=== PATIENT | female | born 1985 ===

== ENCOUNTER 2020-08-23 05:16 | Inpatient (IN) | payer OTHER ==
[2020-08-23] MEDS ORDERED: Misoprostol 200 MCG Tab PO PRN (05:38)
[2020-08-23] MEDS ORDERED: Methylergonovine 0.2 MG/1 ML Amp IM PRN (05:38)
[2020-08-23] MEDS ORDERED: Sodium Chloride 0.9% 10 ML SDV IV PRN (05:38)
[2020-08-23] MEDS ORDERED: Sodium Chloride 0.9% 2.5 ML Syringe FLUSH PRN (05:38)
[2020-08-23] MEDS ORDERED: Water For Irrigation,Sterile 1,000 ML Container IRR PRN (05:38)
[2020-08-23] MEDS ORDERED: Ampicillin 2 GM in Sodium Chloride 0.9% 100 ML IV ONE (05:38)
[2020-08-23] MEDS ORDERED: Butorphanol 1 MG/ML SDV IVPUSH PRN (05:38)
[2020-08-23] MEDS ORDERED: Lidocaine 1% 50 ML MDV INJECT PRN (05:38)
[2020-08-23] MEDS ORDERED: Nalbuphine 10 MG/1 ML Vial IVPUSH PRN (05:38)
[2020-08-23] MEDS ORDERED: Sodium Chloride 0.9% 10 ML Syringe FLUSH PRN (05:38)
[2020-08-23] MEDS ORDERED: Tranexamic Acid 1,000 MG in Sodium Chloride 0.9% 100 ML IV PRN (05:38)
[2020-08-23] MEDS ORDERED: Carboprost Tromethamine 250 MCG/1 ML Amp IM PRN (05:38)
[2020-08-23] MEDS ORDERED: Terbutaline 1 MG/ML SDV SUBCUT PRN (05:43)
[2020-08-23] MEDS ORDERED: Oxytocin/0.9 % Sodium Chloride 30 UNIT/500 ML BAG IV SCH ×2 (05:45)
[2020-08-23] MEDS ORDERED: Ondansetron 4 MG/2 ML SDV IVPUSH PRN (05:45)
[2020-08-23] MEDS ORDERED: Lactated Ringers 1,000 ML IV SCH (05:45)
[2020-08-23 07:09] LABS: BLOOD UREA NITROGEN,BUN 11 mg/dL (7.0-18.0); CARBON DIOXIDE,CO2 20.1 mmol/L (21.0-32.0); CHLORIDE,CL 104 mmol/L (98-107); GLUCOSE RANDOM 113 mg/dL (74-106); POTASSIUM,K 3.9 mmol/L (3.5-5.1); SODIUM,NA 137 mmol/L (136-145)
[2020-08-23] MEDS ORDERED: Ampicillin 1 GM in Sodium Chloride 0.9% 50 ML IV SCH ×2 (10:30→10:45)
[2020-08-23] MEDS ORDERED: Ibuprofen 400 MG Tab PO PRN (14:14)
[2020-08-23] MEDS ORDERED: Benzocaine/Menthol 20%-0.5% Spray 78 GM Cannister TOP PRN (14:14)
[2020-08-23] MEDS ORDERED: Acetaminophen 500 MG Tab PO PRN ×2 (14:14)
[2020-08-23] MEDS ORDERED: Bisacodyl 10 MG Supp RECTAL PRN (14:14)
[2020-08-23] MEDS ORDERED: Lanolin 100% Cream 7 GM Tube TOP PRN (14:14)
[2020-08-23] MEDS ORDERED: Ibuprofen 800 MG Tab PO PRN (14:14)
[2020-08-23] MEDS ORDERED: oxyCODONE 5 MG Tab PO PRN (14:14)
[2020-08-23] MEDS ORDERED: Witch Hazel Medicated Pads 40/Jar TOP PRN (14:14)
[2020-08-23] MEDS ORDERED: Docusate Sodium 100 MG Cap PO PRN (14:14)
--- NOTE | 2020-08-23 14:21 | PCM.OPNOTE ---
- General Post-Op/Procedure Note Date of Surgery/Procedure: 08/23/20 Operative Procedure(s): /IP--precipitous Findings: Viable male APGARs 8,9 weight 2790 gm. Spontaneous delivery intact placenta with 3 V cord. Pre Op Diagnosis: 37/1 week IUP. Gestational hypertension Post-Op Diagnosis: Same Primary Surgeon: Lucila Irby EBL in mLs: 250 Complications: none known Condition: Stable Free Text/Narrative:: Dictation [id number]
--- NOTE | 2020-08-23 15:47 | OR ---
SURGEON: Lucila Irby M.D. DATE OF PROCEDURE: 08/23/2020 PREOPERATIVE DIAGNOSIS: A 37 and 1 week intrauterine , presents for induction of labor for gestational hypertension. POSTOPERATIVE DIAGNOSIS: A 37 and 1 week intrauterine , presents for induction of labor for gestational hypertension. PROCEDURE: Spontaneous vaginal delivery with intact perineum. ANESTHESIA: None. ESTIMATED BLOOD LOSS: 250 mL. COMPLICATIONS: None known. FINDINGS: Viable male, scores of 8 at one minute and 9 at five minutes, weight of 2720 g. Spontaneous delivery, intact placenta, 3-vessel cord. DISPOSITION: Infant to nursery, mom in LDRP. PROCEDURE DETAILS: Missy is a 35-year-old female who presents at 37 and 1 week gestational age for scheduled induction of labor due to gestational hypertension. She has been followed since 34 weeks with mild-range gestational hypertension with blood pressures mainly in the 140s over 90s. She did receive steroids for lung maturity a couple of weeks ago. Group B strep was positive. The patient was admitted. Routine labs were drawn as well as PIH labs, which are reassuring and stable. Blood pressures are ranging 130s to 150s over 80s to 100s. The patient is denying headaches, visual changes, or midepigastric pain. The patient preferred just to have an amniotomy performed. She was already found to be 4 cm, 80% effaced, and -2 station. Therefore, she underwent dosing for her group B strep prophylaxis. She received 2 doses, and within the next hour, underwent amniotomy. A large amount of clear fluid was returned. The patient began to progress, and shortly before 2 p.m., she was found to be complete. I was called for delivery. Upon my arrival, the patient delivered precipitously. was on her chest with the attending nursery staff at her side. Cord was still intact. The cord was clamped x2 and cut. Cord arterial, cord venous, and cord blood sampling obtained. Light pressure was applied while the placenta was delivered spontaneously intact. Vigorous fundal uterine massage was then applied while 30 units of Pitocin was delivered in 500 mL IV fluid. Upon inspection of the cervix, vaginal sidewall, and perineum, these were found to be intact. The patient tolerated this procedure well overall. Hemostasis appeared evident. Sponge and instrument counts correct. The patient remained in LDRP. We will monitor blood pressures closely. to nursery. ELINA / JAY /[id number]
[2020-08-24] MEDS ORDERED: Citalopram 20 MG Tab PO SCH (09:00)
--- NOTE | 2020-08-24 11:55 | PCM.PNPP ---
- General Info Date of Service: 08/24/20 Functional Status: Reports: Pain Controlled, Tolerating Diet, Ambulating, Urinating - Review of Systems General: Reports: Fatigue. Denies: Fever, Weakness Pulmonary: Denies: Shortness of Breath Cardiovascular: Denies: Chest Pain, Palpitations, Lightheadedness Gastrointestinal: Denies: Abdominal Pain, Nausea, Vomiting Genitourinary: Denies: Flank Pain Musculoskeletal: Reports: No Symptoms Skin: Reports: No Symptoms Neurological: Reports: No Symptoms Psychiatric: Reports: No Symptoms - General Info Date of Service: 08/24/20 - Patient Data Vital Signs - Most Recent: Last Vital Signs Temp 35.9 C L 08/24/20 09:17 Pulse 84 08/24/20 09:17 Resp 16 08/24/20 09:17 BP 119/75 08/24/20 09:17 Pulse Ox 98 08/24/20 09:17 Weight - Most Recent: 88.224 kg Lab Results - Last 24 Hours: Laboratory Results - last 24 hr 08/23/20 08/24/20 Range/Units 15:31 05:17 Hgb 12.3 (12.0-16.0) g/dL Hct 38.3 (36.0-46.0) % Screen NEGATIVE (NEGATIVE) RhIG Candidate? YES Rhogam Indicated YES, BABY RH POS H Med Orders - Current: Current Medications Acetaminophen (Tylenol Extra Strength) 500 mg PO Q4H PRN PRN Reason: Pain Acetaminophen (Tylenol Extra Strength) 1,000 mg PO Q4H PRN PRN Reason: Pain Benzocaine/Menthol (Dermoplast Pain Relief 20%-0.5% [place]) 78 gm TOP ASDIRECTED PRN PRN Reason: Perineal Comfort Measure Last Admin: 08/23/20 15:57 Dose: 1 canister Documented by: Bisacodyl (Dulcolax) 10 mg RECTAL ONETIME PRN PRN Reason: Constipation Butorphanol Tartrate (Stadol) 1 mg IVPUSH Q1H PRN PRN Reason: Pain Carboprost Tromethamine (Hemabate Ds) 250 mcg IM ASDIRECTED PRN PRN Reason: Post Hemorrhage Citalopram Hydrobromide (Celexa) 20 mg PO DAILY SHAR Last Admin: 08/24/20 11:50 Dose: 20 mg Documented by: Docusate Sodium (Colace) 100 mg PO BID PRN PRN Reason: Constipation Emollient Ointment (Lansinoh Hpa) 0 gm TOP ASDIRECTED PRN PRN Reason: Sore Nipples Last Admin: 08/23/20 15:56 Dose: 7 g Documented by: Oxytocin/Sodium Chloride (Oxytocin 30 Unit/500 Ml-Ns) 30 unit in 500 mls @ 999 mls/hr IV TITRATE SHAR Last Infusion: 08/23/20 14:08 Dose: 500 mls/hr Documented by: Tranexamic Acid 1,000 mg/ (Sodium Chloride) 110 mls @ 660 mls/hr IV ONETIME PRN PRN Reason: Bleeding Lactated Ringer's (Ringers, Lactated) 1,000 mls @ 150 mls/hr IV ASDIRECTED SHAR Last Admin: 08/23/20 06:20 Dose: 150 mls/hr Documented by: Oxytocin/Sodium Chloride (Oxytocin 30 Unit/500 Ml-Ns) 30 unit in 500 mls @ 2 mls/hr IV TITRATE [facility]; Protocol Ibuprofen (Motrin) 400 mg PO Q4H PRN PRN Reason: Pain Ibuprofen (Motrin) 800 mg PO Q6H PRN PRN Reason: Pain Last Admin: 08/24/20 00:21 Dose: 800 mg Documented by: Methylergonovine Maleate (Methergine) 0.2 mg IM ASDIRECTED PRN PRN Reason: Post Hemorrhage Nalbuphine HCl (Nubain) 10 mg IVPUSH Q1H PRN PRN Reason: Pain (severe 7-10) Ondansetron HCl (Zofran) 4 mg IVPUSH Q4H PRN PRN Reason: Nausea Oxycodone HCl (Oxycodone) 5 mg PO Q2H PRN PRN Reason: Pain Sodium Chloride (Saline Flush) 10 ml FLUSH ASDIRECTED PRN PRN Reason: Keep Vein Open Sodium Chloride (Saline Flush) 2.5 ml FLUSH ASDIRECTED PRN PRN Reason: Keep Vein Open Sodium Chloride (Normal Saline) 10 ml IV ASDIRECTED PRN PRN Reason: IV Use Sterile Water (Sterile Water For Irrigation) 1,000 ml IRR ASDIRECTED PRN PRN Reason: delivery Witch Cathryn (Tucks) 1 pad TOP ASDIRECTED PRN PRN Reason: comfort care Last Admin: 08/23/20 15:56 Dose: 1 tub Documented by: Discontinued Medications Ampicillin Sodium 2 gm/ Sodium (Chloride) 100 mls @ 200 mls/hr IV ONETIME ONE Stop: 08/23/20 06:07 Last Admin: 08/23/20 06:26 Dose: 200 mls/hr Documented by: Ampicillin Sodium 1 gm/ Sodium (Chloride) 50 mls @ 100 mls/hr IV Q4H SHAR Ampicillin Sodium 1 gm/ Sodium (Chloride) 50 mls @ 100 mls/hr IV Q4H SHAR Last Admin: 08/23/20 10:48 Dose: 100 mls/hr Documented by: Lidocaine HCl (Xylocaine 1%) 50 ml INJECT ONETIME PRN PRN Reason: Laceration repair Misoprostol (Cytotec) 200 mcg PO ONETIME PRN PRN Reason: Post Hemorrhage Terbutaline Sulfate (Brethine) 0.25 mg SUBCUT ASDIRECTED PRN PRN Reason: Tacysystole - Interaction Support Person: Significant Other - Recovery Exam Fundal Tone: Firm Fundal Level: 1 Fingerbreadths Below Umbilicus Fundal Placement: Midline Lochia Amount: Moderate Lochia Color: Rubra/Red Perineum Description: Intact, Minimal Bruising/Swelling Bladder Status: Voiding Urinary Elimination: Voided - Exam General: Alert, Oriented Lungs: Normal Respiratory Effort Cardiovascular: Regular Rate, Regular Rhythm GI/Abdominal Exam: Normal Bowel Sounds, Soft Extremities: Pedal Edema (trace). No: Valdo's Sign Skin: Warm, Dry, Intact Neurological: No New Focal Deficit Psy/Mental Status: Alert, Normal Affect, Normal Mood - Problem List & Annotations (1) Vaginal delivery SNOMED Code(s): 633390499 Code(s): O80 - ENCOUNTER FOR FULL-TERM UNCOMPLICATED DELIVERY Status: Acute Current Visit: Yes (2) Gestational hypertension SNOMED Code(s): 115427259 Code(s): O13.9 - GESTATIONAL HTN W/O SIGNIFICANT PROTEINURIA, UNSP TRIMESTER Status: Acute Current Visit: Yes - Problem List Review Problem List Initiated/Reviewed/Updated: Yes - My Orders Last 24 Hours: My Active Orders 08/23/20 14:14 Notify Provider Vital Signs [RC] ASDIRECTED Acetaminophen [Tylenol Extra Strength] 1,000 mg PO Q4H PRN Acetaminophen [Tylenol Extra Strength] 500 mg PO Q4H PRN Benzocaine/Menthol [Dermoplast Pain Relief 20%-0.5% [place]] 78 gm TOP ASDIRECTED PRN Docusate Sodium [Colace] 100 mg PO BID PRN Ibuprofen [Motrin] 400 mg PO Q4H PRN Ibuprofen [Motrin] 800 mg PO Q6H PRN Lanolin [Lansinoh HPA] See Dose Instructions TOP ASDIRECTED PRN bisacodyL [Dulcolax] 10 mg RECTAL ONETIME PRN oxyCODONE 5 mg PO Q2H PRN witch Cathryn [Tucks] 1 pad TOP ASDIRECTED PRN 08/23/20 14:15 Patient Status [ADT] Routine May Shower [RC] ASDIRECTED Up ad Eleni [RC] ASDIRECTED Vital Signs [RC] PER UNIT ROUTINE Assess Lochia [WOMSER] Per Unit Routine Assess Uterine Involution [WOMSER] Per Unit Routine Ice Therapy [OM.PC] Per Unit Routine Perineal Care [OM.PC] Per Unit Routine Peripheral IV Discontinue [OM.PC] Routine Sitz Bath [OM.PC] Per Unit Routine 08/23/20 14:16 Cooling Warming Measures [RC] ASDIRECTED 08/23/20 15:31 SCREEN [BBK] Urgent RH IMMUNE GLOBULIN [BBK] Urgent RHOGAM, [RHIG WORKUP, ] [BBK] Urgent 08/24/20 09:00 Citalopram [Celexa] 20 mg PO DAILY 08/24/20 11:52 Ready for Discharge [RC] PER UNIT ROUTINE - Assessment Assessment:: PPD 1 status post Gestational HTN--BPs normalizing - Plan Plan:: Patient is doing well overall. BPs improving nicely> Denies headaches or visual changes. is going well. She would prefer to go home today if baby is able to. She will continue to monitor BPs at home and call with any concerns. She agrees to take citalopram this period given history of PP depression. Discharge to home. [facility] up at [facility] 4 weeks and we will call her in interval. Discharge instructions reviewed.
[2020-08-24 18:17] VITALS: BP 138/98; PULSE 97
== END 2020-08-24 17:20 | disposition home or self-care (01) | DRG 807 ==
LOC: MW.OBCHECK 05:16 → MW.OB 05:17 → MW.OBCHECK 05:39 → OBSVTOIN 13:48 → MW.OB 19:41
PROVIDERS: ADMIT Obstetrics & Gynecology; ATTEND Obstetrics & Gynecology
PROC: 10E0XZZ Delivery of Products of Conception, External Approach (ICD-10-PCS; principal; 2020-08-23)
PROC: 10907ZC Drainage of Amniotic Fluid, Therapeutic from Products of Conception, Via Natural or Artificial Opening (ICD-10-PCS; 2020-08-23)
PROC: 3E0234Z Introduction of Serum, Toxoid and Vaccine into Muscle, Percutaneous Approach (ICD-10-PCS; 2020-08-24)
DX: O13.4 Gestational [pregnancy-induced] hypertension without significant proteinuria, complicating childbirth (principal); Z37.0 Single live birth; Z3A.37 37 weeks gestation of pregnancy; O62.3 Precipitate labor; Z20.828 Contact with and (suspected) exposure to other viral communicable diseases; O26.893 Other specified pregnancy related conditions, third trimester; Z67.41 Type O blood, Rh negative
CPT/HCPCS: 36415; 36430; 59025; 59409; 80053; 82570; 84156; 85014; 85018; 85027; 85460; 86592; 86850; 86870; 86900; 86901; A9270-GY; J0290; J2590; J2792; J7050; J7120

== ENCOUNTER 2021-08-08 08:57 | Emergency (ER) | payer OTHER ==
[2021-08-08] MEDS ORDERED: Ibuprofen 600 MG Tab PO ONE (09:09)
[2021-08-08] MEDS ORDERED: Acetaminophen 500 MG Tab PO ONE (09:09)
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
[2021-08-08 10:02] LABS: CORONAVIRUS COVID-19 NAA NEGATIVE (NEGATIVE); INFLUENZA A NAA NEGATIVE (NEGATIVE); INFLUENZA B NAA NEGATIVE (NEGATIVE)
--- NOTE | 2021-08-08 10:20 | CR ---
Indication: COVID symptoms. Technique: AP portable view of the chest. Comparison: None Findings: The heart is normal in size. The lungs are clear. No infiltrate, pleural effusion, or pneumothorax is identified. Impression: No acute cardiopulmonary process. Dictated by Chuyita France MD @ 08/08/2021 10:18:18 AM (Electronically Signed)
[2021-08-08 10:27] VITALS: BP 123/88; PULSE 91
== END 2021-08-08 10:29 | disposition home or self-care (01) ==
LOC: MW.ED 08:57
DX: R05.9 Cough, unspecified (principal); Z20.822 Contact with and (suspected) exposure to COVID-19
CPT/HCPCS: 0240U; 71045; 99283; A9270